=== PATIENT | male | born 1940 | race American Indian/Alaskan Native ===

== ENCOUNTER 2017-07-14 07:24 | Day surgery (SDC) | payer BC, MEDICARE ==
[2017-07-14 08:34] LABS: Eosinophils % (Auto) 2.1 % (0.0-4.3); Hematocrit 40.5 % (35.5-45.6); Hemoglobin 13.3 gm/dl (11.8-15.2); Mean Corpuscular HGB Conc 33 % (32-34); Mean Corpuscular Hemoglobin 29 pg (28-32); Mean Corpuscular Volume 87 fl (84-94); Platelet Count 243 K/mm3 (140-440); Red Blood Count 4.64 M/mm3 (3.65-5.03); Red Cell Distribution Width 16.4 % (13.2-15.2); White Blood Count 6.5 K/mm3 (4.5-11.0)
[2017-07-14 08:42] LABS: Anion Gap 16 mmol/L; BUN/Creatinine Ratio 15.38; Blood Urea Nitrogen 20 mg/dL (9-20); Calcium 8.9 mg/dL (8.4-10.2); Carbon Dioxide 25 mmol/L (22-30); Chloride 103.5 mmol/L (98-107); Glucose 133 mg/dL (75-100); Potassium 3.7 mmol/L (3.6-5.0); Sodium 141 mmol/L (137-145)
[2017-07-14 08:43] LABS: INR 0.95 (0.87-1.13)
[2017-07-14] MEDS ORDERED: NACL 0.9% 500 ML 500 ML IV SCH (09:00)
[2017-07-14] MEDS ORDERED: CALAN ONE (09:41)
[2017-07-14] MEDS ORDERED: NITROGLYCERIN SYRINGE 3 ML ONE (09:41)
[2017-07-14] MEDS ORDERED: HEPARIN/NS 5000 UNIT/500ML(CATH LAB) 1,000 ML IR ONE (09:41)
[2017-07-14] MEDS ORDERED: XYLOCAINE 2% INFILTRATI ONE (09:41)
[2017-07-14] MEDS ORDERED: HEPARIN 10,000 UNITS/10 ML ONE (09:41)
[2017-07-14] MEDS ORDERED: SUBLIMAZE ONE (09:42)
[2017-07-14] MEDS ORDERED: VERSED ONE (09:42)
--- NOTE | 2017-07-14 10:51 | Cardiac Catherization Report ---
REFERRING PHYSICIAN: Ej Peterson MD INDICATION FOR PROCEDURE: The patient is a very pleasant 76-year-old -[place] gentleman with history of severe cardiomyopathy, abnormal stress test, referred for left heart catheterization. Risks, benefits, and potential alternatives explained at length prior to obtaining informed consent. PROCEDURE IN DETAIL: The patient was brought to catheterization lab in a postabsorptive state, prepped and draped in sterile fashion. Wiliam's test in right hand was normal. A 2 mL of 2% lidocaine used to anesthetize the right wrist. A standard [place] hydrophilic sheath used to cannulate the right radial artery via modified Seldinger technique. All exchanges were performed to exchange a J-tip guidewire. JL3.5 catheter used to engage left main. No dampening or ventricularization. Cineangiography performed in all projections. JR4 catheter used to cross the aortic valve under fluoroscopic guidance. Left ventriculography performed in 30 DOMINGUEZ and 30 DWAYNE projections via hand injections. Next, catheter flushed. Manual pullback performed with continuous pressure monitoring. Catheter used to engage the right coronary. No dampening or ventricularization. Cineangiography performed in all projections. Next, catheter removed from the body of wire, sheath removed. Manual pressure used to achieve hemostasis. DATA: Aortic pressure is 150/70, LV pressure is 150, LVP of 20 mmHg. Left ventriculography revealed severe global left ventricular hypokinesis, estimated ejection fraction of 20-25%. No evidence of aortic stenosis, high normal LVEDP. The patient remained in normal sinus rhythm throughout the procedure. CORONARY ANATOMY: This is a codominant system. Left main is without significant disease. It bifurcates as left anterior descending and left circumflex. Left circumflex is a moderate sized vessel, courses AV groove. The mid left circumflex has a chronic total occlusion. It is a smaller vessel with left to left collaterals. The two OM trunks are widely patent, which collateralizes the distal left circumflex, without significant disease. LAD is a large vessel, courses anterior intergroove, wraps around the apex, no significant disease. The right coronary is a moderate-sized vessel, courses AV groove, distally bifurcates in the posterior and posterolateral branch. Scattered luminal irregularities, but no significant obstructive disease identified. CONCLUSIONS: 1. Single vessel disease with a chronic total occlusion of mid left circumflex with excellent collaterals. This is a smaller vessel. No other significant disease identified in this codominant system. 2. Severe left ventricular systolic hypokinesis with estimated ejection fraction of 20-25%. 3. No evidence of aortic stenosis. 4. Mildly elevated LVEDP. These findings are consistent with a severe nonischemic cardiomyopathy, unclear etiology. We would double Coreg to 6.25 p.o. twice daily. Continue losartan. Appears well compensated. Results of procedure explained to the patient and family. All questions and concerns were addressed. The patient will follow up with Dr. Eng in the office. JOB# [id number] THERESA/NTS
[2017-07-14] MEDS ORDERED: ECOTRIN PO ONE (11:00)
--- NOTE | 2017-07-14 11:02 | Short Stay Summary ---
Short Stay Documentation Date of service: 07/14/17 - History H&P: obtained from office - Allergies and Medications Current Medications: Allergies No Known Allergies Allergy (Verified 07/14/17 08:00) Home Medications Medication Instructions Recorded Confirmed Last Taken Type amLODIPine [Norvasc] 10 mg PO DAILY 01/27/14 07/14/17 07/14/17 History glipiZIDE [glipiZIDE XL] 10 mg PO BID 01/27/14 07/14/17 2 Weeks Ago History ALBUTEROL Inhaler [Proair] 2 puff IH QID PRN 07/14/17 07/14/17 07/13/17 History Budesoni/Formotero 160-4.5(Nf) 2 puff IH BID 07/14/17 07/14/17 07/13/17 History [Symbicort 160-4.5 (Nf)] Carvedilol [Coreg] 6.25 mg PO BID #60 tablet 07/14/17 Unknown Rx Active Medications Aspirin (Ecotrin) 325 mg PO ONCE ONE Stop: 07/14/17 11:01 Sodium Chloride (Nacl 0.9% 500 Ml) 500 mls @ 50 mls/hr IV DIRECT DELMIS Stop: 07/14/17 18:59 Last Admin: 07/14/17 09:59 Dose: 50 mls - Brief post op/procedure progress note Date of procedure: 07/14/17 Pre-op diagnosis: CMP Post-op diagnosis: same Procedure: LHC - see cath report Anesthesia: local Estimated blood loss: none Pathology: none Condition: stable - Hospital course Hospital course: Pt presented for scheduled elective LHC - see cath report for findings. He remained clinically and hemodynamically stable throughout procedure and recovery and will be discharged home following completion of post-cath order set. - Disposition Condition at discharge: Stable Disposition: [id number]-01 TO HOME OR SELFCARE - Discharge Diagnoses (1) Cardiomyopathy Status: Chronic Qualifiers: Cardiomyopathy type: C (2) CAD (coronary artery disease) Status: Chronic Qualifiers: Coronary Disease-Associated Artery/Lesion type: C [place] vs. transplanted heart: N Associated angina: A (3) Hypertension Status: Chronic Qualifiers: Hypertension type: H (4) Hyperlipemia Status: Chronic Qualifiers: Hyperlipidemia type: H (5) Diabetes mellitus Status: Chronic Qualifiers: Diabetes mellitus type: D Diabetes mellitus complication status: D Diabetes mellitus complication detail: D Diabetic retinopathy severity: D Proliferative retinopathy type: P Diabetes mellitus macular edema: D Diabetes mellitus usp insulin use: D Laterality: L Chronic kidney disease stage: C Short Stay Discharge Plan Activity: advance as tolerated Diet: low fat, low cholesterol, low salt Wound: open to air, keep clean and dry, per your surgeon's advice Follow up with: PERLA MARCH MD [Staff Physician] - 7 Days ([place] office, 08/01/2017 @ 2:45PM) Prescriptions: Carvedilol [Coreg] 6.25 mg PO BID #60 tablet
[2017-07-14 13:32] VITALS: BP 139/79
== END 2017-07-14 13:05 | disposition home or self-care (01) ==
LOC: CATHLABREC 07:24
PROVIDERS: ATTEND Internal Medicine
DX: I25.10 Atherosclerotic heart disease of native coronary artery without angina pectoris (principal); I25.82 Chronic total occlusion of coronary artery; I10 Essential (primary) hypertension; E78.5 Hyperlipidemia, unspecified; E11.9 Type 2 diabetes mellitus without complications; J44.9 Chronic obstructive pulmonary disease, unspecified; F17.210 Nicotine dependence, cigarettes, uncomplicated; Z79.899 Other long term (current) drug therapy; Z79.84 Long term (current) use of oral hypoglycemic drugs; Z72.89 Other problems related to lifestyle; Z80.0 Family history of malignant neoplasm of digestive organs
CPT/HCPCS: 36415; 80048; 85025; 85610; 93005; 93010; 93458; C1894; J1644; J2250; J3010; J7040; Q9967

== ENCOUNTER 2018-09-01 11:56 | Emergency (ER) | payer OTHER, BC, MEDICARE ==
[2018-09-01 12:16] VITALS: BP 142/76
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
== END 2018-09-01 15:17 | disposition home or self-care (01) ==
LOC: ED 11:56
DX: S39.012A Strain of muscle, fascia and tendon of lower back, initial encounter (principal); S29.012A Strain of muscle and tendon of back wall of thorax, initial encounter; I10 Essential (primary) hypertension; E11.9 Type 2 diabetes mellitus without complications; M19.90 Unspecified osteoarthritis, unspecified site; J45.909 Unspecified asthma, uncomplicated; F17.200 Nicotine dependence, unspecified, uncomplicated; Z79.899 Other long term (current) drug therapy; V49.59XA Passenger injured in collision with other motor vehicles in traffic accident, initial encounter; Y93.89 Activity, other specified; Y99.8 Other external cause status; Y92.488 Other paved roadways as the place of occurrence of the external cause
CPT/HCPCS: 99282